=== PATIENT | male | born 1995 | race Hispanic/Latino ===

== ENCOUNTER 2021-08-27 19:08 | Emergency (ER) | payer OTHER | END 2021-08-27 20:16 | disposition home or self-care (01) | LOC: ERS 19:08 | DX: S40.021A Contusion of right upper arm, initial encounter (principal); S30.811A Abrasion of abdominal wall, initial encounter; F17.210 Nicotine dependence, cigarettes, uncomplicated; V89.2XXA Person injured in unspecified motor-vehicle accident, traffic, initial encounter ==